=== PATIENT | female | born 1955 | race Caucasian/White ===

== ENCOUNTER → 2016-11-16 | Outpatient (CLI) | payer BC ==
--- NOTE | 2016-11-17 09:52 | MM ---
Reason for exam: screening (asymptomatic). Last mammogram was performed 2 years ago. History: Patient is postmenopausal. Family history of breast cancer in paternal grandmother at age 68. Took hormonal contraceptives for 3 years. Physical Findings: A clinical breast exam by your physician is recommended on an annual basis and results should be correlated with mammographic findings. MG Screening Mammo w CAD Bilateral CC and MLO view(s) were taken. Prior study comparison: November 03, 2014, left breast MG work up mamm w CAD LT. October 20, 2014, bilateral MG screening mammo w CAD. The breast tissue is heterogeneously dense. This may lower the sensitivity of mammography. There is no discrete abnormality. No significant changes when compared with prior studies. ASSESSMENT: Negative, BI-RAD 1 RECOMMENDATION: Routine screening mammogram of both breasts in 1 year.
== END | disposition home or self-care (01) ==
LOC: RADMAMWWP 10:17
PROVIDERS: ATTEND Obstetrics & Gynecology
DX: Z12.31 Encounter for screening mammogram for malignant neoplasm of breast (principal)

== ENCOUNTER → 2018-09-14 | Outpatient (CLI) | payer BC ==
--- NOTE | 2018-09-18 08:47 | MM ---
Reason for exam: screening (asymptomatic). Last mammogram was performed 1 year and 10 months ago. History: Patient is postmenopausal. Family history of breast cancer in paternal grandmother at age 68. Took hormonal contraceptives for 3 years. Physical Findings: A clinical breast exam by your physician is recommended on an annual basis and results should be correlated with mammographic findings. MG 3D Screening Mammo W/Cad Bilateral CC and MLO view(s) were taken. Prior study comparison: November 16, 2016, bilateral MG screening mammo w CAD. November 03, 2014, left breast MG work up mamm w CAD LT. The breast tissue is heterogeneously dense. This may lower the sensitivity of mammography. No suspicious abnormality. No significant changes when compared with prior studies. ASSESSMENT: Negative, BI-RAD 1 RECOMMENDATION: Routine screening mammogram of both breasts in 1 year.
== END | disposition home or self-care (01) ==
LOC: RADMAMWWP 13:44
PROVIDERS: ATTEND Family Medicine
DX: Z12.31 Encounter for screening mammogram for malignant neoplasm of breast (principal)
CPT/HCPCS: 77063; 77067

== ENCOUNTER → 2020-09-18 | Outpatient (CLI) | payer MEDICARE ==
--- NOTE | 2020-09-22 11:57 | MM ---
Reason for exam: screening (asymptomatic). Last mammogram was performed 2 years ago. History: Patient is postmenopausal. Family history of breast cancer in paternal grandmother at age 68. Took hormonal contraceptives for 3 years. Physical Findings: A clinical breast exam by your physician is recommended on an annual basis and results should be correlated with mammographic findings. MG 3D Screening Mammo W/Cad Bilateral CC and MLO view(s) were taken. XCCL view(s) were taken of the right breast. Prior study comparison: September 14, 2018, bilateral MG 3d screening mammo w/cad. November 16, 2016, bilateral MG screening mammo w CAD. The breast tissue is extremely dense which could obscure a lesion on mammography. No significant changes when compared with prior studies. ASSESSMENT: Benign, BI-RAD 2 RECOMMENDATION: Routine screening mammogram of both breasts in 1 year.
== END | disposition home or self-care (01) ==
LOC: RADMAMWWP 13:46
PROVIDERS: ATTEND Family Medicine
DX: Z12.31 Encounter for screening mammogram for malignant neoplasm of breast (principal)
CPT/HCPCS: 77063; 77067

== ENCOUNTER → 2023-10-06 | Outpatient (CLI) | payer MEDICARE ==
--- NOTE | 2023-10-06 12:07 | BD ---
EXAMINATION TYPE: Axial Bone Density DATE OF EXAM: 10/06/2023 CLINICAL HISTORY: 68 years old Female. ICD-10 CODE: S72.92XA UNSP FRACTURE OF LEFT FEMUR, INIT ENCNT R Height: 62.5 Weight: 101.0 FRAX RISK QUESTIONS: Alcohol (3 or more units per day): no Family History (Parent hip fracture): no Glucocorticoids (More than 3mos): no (Ex: prednisone, prednisolone, methylprednisolone, dexamethasone, and hydrocortisone). History of Fracture in Adulthood: yes Secondary Osteoporosis: 1. Type 1 Diabetes: no 2. Hyperthyroidism: no 3. Menopause before 45: no 4. Malnutrition: no 5. Chronic liver disease: no Rheumatoid Arthritis: no Current Tobacco Use: no RISK FACTORS HISTORY OF: Hip Fracture (Right/Left): Lt Femur When: 2021 Spine Fracture: no History of Wrist Fracture: LT Wrist When: 2021 Surgery to Spine/Hip(right/left)/Wrist (right/left): LT Femur and Lt Wrist When: 2021 Family History of Osteoporosis: yes Active: yes Diet low in dairy products/other sources of calcium: no Postmenopausal woman: yes Take estrogen and/or progesterone medications: no Lost more than 2 inches in height since high school: no Frequent falls: no Poor Health: no Hyperparathyroidism: no Adrenal Insufficiency: no MEDICATIONS: Prednisone or other steroids: no Thyroid Medications: Synthroid How Long: past 20 years Osteoporosis Medications: Fosamax How Long: past year Additional Medications: Vit D, Calcium, Zinc, Multi Vit Additional History: EXAM MEASUREMENTS: Bone mineral densitometry was performed using the [employer] System. Bone mineral density as measured about the Lumbar spine is: ----- L1-L4(G/cm2): 0.804 T Score Values are as follows: ----- L1: -3.3 ----- L2: -3.4 ----- L3: -3.2 ----- L4: -2.9 ----- L1-L4: -3.1 Z Score Values are as follows: ----- L1-1.0: ----- L2: -1.2 ----- L3: -0.9 ----- L4: -0.6 ----- L1-L4: -0.8 Baseline Study Bone mineral density about the R hip (g/cm2): 0.736 -----R Neck: -1.9 -----R Total: -2.2 Z Score values are as follows: -----R Neck: 0.2 -----R Total: -0.3 Baseline Study FRAX%s: The graph provided illustrates a 14.9% chance for a major osteoporotic fx and a 2.8% chance f or the hips probability for fx in 10 years time. IMPRESSION: Osteoporosis (T Score less than -2.5). There is increased fracture risk and therapy is usually indicated based on age. Re-Screen 1-2 years. NOTE: T-SCORE=SD OF THE YOUNG ADULT MEAN.
== END | disposition home or self-care (01) ==
LOC: RADBDWWP 08:46
PROVIDERS: ATTEND Internal Medicine
DX: S72.92XA Unspecified fracture of left femur, initial encounter for closed fracture (principal); M81.0 Age-related osteoporosis without current pathological fracture; M85.851 Other specified disorders of bone density and structure, right thigh; Z78.0 Asymptomatic menopausal state; X58.XXXA Exposure to other specified factors, initial encounter
CPT/HCPCS: 77080